=== PATIENT | female | born 1975 | race Caucasian/White ===

== ENCOUNTER 2017-06-01 14:59 | Emergency (ER) | payer SELFPAY ==
[2017-06-01 15:09] VITALS: BP 132/97; BMI 33.3
--- NOTE | 2017-06-01 15:33 | DR.GENAD ---
HPI - PCP Primary Care Physician: NONE - Complaint/Symptoms Chief Complaint:: "LEFT UNDER BREAST PAIN AFTER EATING AND SICK ON MY TUMMY FOR TWO WEEKS NOW AND I THINK I HAVE A KINDEY INFECTION" - Source History Provided: Patient - Mode of Arrival Mode of Arrival: Ambulatory - Timing Onset of Chief Complaint: 05/27/17 PMH - PMH Past Medical History: Yes Past Medical History: COPD Past Surgical History: Yes Surgical History: Tonsillectomy Past Surgical History Comment: TUBAL - Family History History of Family Medical Conditions: No - Social History Does patient currently use any type of tobacco product: Yes Have you used tobacco products in the last 12 months: Yes Type of Tobacco Use: Cigarettes How many years tobacco product used: 20 Does any household member use tobacco: No Alcohol Use: None Do you use any recreational Drugs:: No Lives With: Alone Lives Where: Home - infectious screening In the last 2 months have you had wt loss of >10#?: NO Have you had fever, night sweats or hemotysis?: No Have you traveled outside the country in the last 6 months?: No Isolation: Standard ROS - Review of Systems Constitutional: No Symptoms Reported Eyes: No Symptoms Reported ENTM: No Symptoms Reported Respiratoy: No Symptoms Reported Cardiovascular: No Symptoms Reported Gastrointestinal/Abdominal: No Symptoms Reported Genitourinary: No Symptoms Reported Neurological: No Symptoms Reported Musculoskeletal: No Symptoms Reported Integumentary: No Symptoms Reported Hematologic/Lymphatic: No Symptoms Reported Endocrine: No Symptoms Reported Psychiatric: No Symptoms Reported All Other Systems: Reviewed and Negative PE - Vital Signs Vitals: Temperature 98 F Pulse Rate 110 Respiratory Rate 18 Blood Pressure 132/97 O2 Sat by Pulse Oximetry 100 - General Limitations: No Limitations General Appearance: Alert, In No Apparent Distress - Head Head Exam: Normal Inspection, Atraumatic - Eyes Eye exam: Normal Appearance, PERRL, EOMI - ENT ENT Exam: Normal Exam, Normal Oropharynx External Ear Exam: Normal External Inspection TM/Canal Exam: Bilateral Normal Nose Exam: Normal Nose Exam, Sinus Tenderness Mouth Exam: Normal Inspection Throat Exam: Normal Inspection - Neck Neck Exam: Normal Inspection - Chest Chest Inspection: Normal Inspection, Symmetric Chest Wall Rise - Cardiovascular Cardiovascular Exam: Regular Rate, Normal Rhythm - Abdominal Exam Abdominal Exam: Normal Inspection, Normal Bowel Sounds, Soft. negative: Distention Abdominal Tenderness: negative: RUQ, RLQ, LUQ, LLQ, Epigastrium, Suprapubic, Diffuse, Mild, Moderate, Severe, Other - Extremities Extremities Exam: Normal Inspection - Back Back Exam: Normal Inspection Course - Reevaluation 1st: Improved ROR - Labs Reviewed Laboratory Results Reviewed?: Yes (Urine negative) Result Diagrams: 06/01/17 16:00 06/01/17 16:00 Laboratory: WBC 6.4 X10^3/uL (3.6-10.0) 06/01/17 16:00 RBC 4.21 X10^6/uL (3.5-5.4) 06/01/17 16:00 Hgb 12.4 g/dL (12.0-16.0) 06/01/17 16:00 Hct 36.0 % (36.0-47.0) 06/01/17 16:00 MCV 85.4 fL (80.0-100.0) 06/01/17 16:00 MCH 29.5 pg (27.0-34.0) 06/01/17 16:00 MCHC 34.5 g/dL (33.0-35.0) 06/01/17 16:00 RDW 14.3 % (11.6-16.5) 06/01/17 16:00 Plt Count 283 X10^3/uL (150.0-450.0) 06/01/17 16:00 MPV 8.4 fL (7.4-11.0) 06/01/17 16:00 Neut % 44.5 % (42.0-75.0) 06/01/17 16:00 Lymph % 44.1 % (21.0-51.0) 06/01/17 16:00 [place] % 8.6 % (0.0-13.0) 06/01/17 16:00 Eos % 2.3 % (0.9-2.9) 06/01/17 16:00 Baso % 0.5 % (0.2-1.0) 06/01/17 16:00 Neut # 2.9 x10^3/uL (2.2-4.8) 06/01/17 16:00 Lymph # 2.8 X10^3/uL (1.3-2.9) 06/01/17 16:00 [place] # 0.5 x10^3/uL (0.3-0.8) 06/01/17 16:00 Eos # 0.1 x10^3/uL (0.0-0.2) 06/01/17 16:00 Baso # 0.0 X10^3/uL (0.0-0.1) 06/01/17 16:00 Absolute Nucleated RBC 0.0 /100WBC 06/01/17 16:00 Sodium 143 mmol/L (136-145) 06/01/17 16:00 Corrected Sodium TNP 06/01/17 16:00 Potassium 3.5 mmol/L (3.5-5.1) 06/01/17 16:00 Chloride 107 mmol/L (98-107) 06/01/17 16:00 Carbon Dioxide 31.9 mmol/L (21-32) 06/01/17 16:00 BUN 9 mg/dL (7-18) 06/01/17 16:00 Creatinine 0.65 mg/dL (0.55-1.02) 06/01/17 16:00 Est GFR (MDRD) Af Amer > 60 (>60) 06/01/17 16:00 Est GFR (MDRD) Non-Af > 60 (>60) 06/01/17 16:00 Glucose 83 mg/dL (65-99) 06/01/17 16:00 Calcium 8.0 mg/dL (8.5-10.1) L 06/01/17 16:00 Corrected Calcium 8.7 mg/dL (8.5-10.1) 06/01/17 16:00 Total Bilirubin 0.20 mg/dL (0.2-1.0) 06/01/17 16:00 AST 44 Units/L (15-37) H 06/01/17 16:00 ALT 35 Units/L (12-78) 06/01/17 16:00 Alkaline Phosphatase 92 Units/L (46-116) 06/01/17 16:00 C-Reactive Protein 14.80 mg/L (0-3.0) H 06/01/17 16:00 Total Protein 6.8 g/dL (6.4-8.2) 06/01/17 16:00 Albumin 3.1 g/dL (3.4-5.0) L 06/01/17 16:00 Globulin 3.7 g/dL (2.5-4.5) 06/01/17 16:00 Albumin/Globulin Ratio 0.8 Ratio (1.1-2.1) L 06/01/17 16:00 Specimen Type Clean catch urine 06/01/17 16:00 Urine Color Yellow (YELLOW) 06/01/17 16:00 Urine Appearance Clear (CLEAR) 06/01/17 16:00 Urine pH 7.0 (5.0 - 8.0) 06/01/17 16:00 Ur Specific [place] 1.010 (1.000-1.030) 06/01/17 16:00 Urine Protein Negative (NEGATIVE) 06/01/17 16:00 Urine Glucose (UA) Negative (NEGATIVE) 06/01/17 16:00 Urine Ketones Negative (NEGATIVE) 06/01/17 16:00 Urine Occult Blood 4+ (NEGATIVE) 06/01/17 16:00 Urine Nitrite Negative (NEGATIVE) 06/01/17 16:00 Urine Bilirubin Negative (NEGATIVE) 06/01/17 16:00 Urine Urobilinogen Normal (NORMAL) 06/01/17 16:00 Ur Leukocyte Esterase Negative (NEGATIVE) 06/01/17 16:00 Urine RBC 5 - 7 /HPF (NEGATIVE) 06/01/17 16:00 Urine WBC Rare /HPF (NEGATIVE) 06/01/17 16:00 Ur Squamous Epith Cells Few /HPF (NEGATIVE) 06/01/17 16:00 Urine Bacteria Negative /HPF (NEGATIVE) 06/01/17 16:00 Ur Culture Indicated? No/not indicated 06/01/17 16:00 H. pylori IgG Antibody Negative (NEGATIVE) 06/01/17 16:00 - XRAY XRAY Interpreted by: Radiologist (Chest: wnl, ) - Diagnosis Discharge Problem: Left sided abdominal pain - Discharge Plan Condition: Stable - Follow ups/Referrals Follow ups/Referrals: NFD,None [Primary Care Provider] - 3 days - Instructions
[2017-06-01] MEDS ORDERED: TORADOL 60 MG VIAL IM ONE (15:55)
[2017-06-01] MEDS ORDERED: NS 1000 ML 1,000 ML IV ONE (15:57)
[2017-06-01] MEDS ORDERED: NS 1000 ML 1,000 ML ONE (15:58)
[2017-06-01] MEDS ORDERED: TORADOL 60 MG VIAL ONE (15:58)
[2017-06-01 16:24] LABS: BASOPHILS % (AUTO) 0.5 % (0.2-1.0); BILIRUBIN,URINE NEGATIVE (NEGATIVE); BLOOD/HEMOGLOBIN,URINE 4+ (NEGATIVE); EOSINOPHILS # (AUTO) 0.1 x10^3/uL (0.0-0.2); EOSINOPHILS % (AUTO) 2.3 % (0.9-2.9); GLUCOSE, URINE NEGATIVE (NEGATIVE); HEMOGLOBIN 12.4 g/dL (12.0-16.0); KETONES,URINE NEGATIVE (NEGATIVE); LEUKOCYTE ESTERASE ,URINE NEGATIVE (NEGATIVE); LYMPHOCYTES # (AUTO) 2.8 X10^3/uL (1.3-2.9); LYMPHOCYTES % (AUTO) 44.1 % (21.0-51.0); MEAN CORPUSCULAR HEMOGLOBIN 29.5 pg (27.0-34.0); MEAN CORPUSCULAR HGB CONC 34.5 g/dL (33.0-35.0); MEAN CORPUSCULAR VOLUME 85.4 fL (80.0-100.0); MEAN PLATELET VOLUME 8.4 fL (7.4-11.0); MONOCYTES # (AUTO) 0.5 x10^3/uL (0.3-0.8); MONOCYTES % (AUTO) 8.6 % (0.0-13.0); NEUTROPHILS # (AUTO) 2.9 x10^3/uL (2.2-4.8); NEUTROPHILS % (AUTO) 44.5 % (42.0-75.0); NITRITES,URINE NEGATIVE (NEGATIVE); PLATELET COUNT 283 X10^3/uL (150.0-450.0); PROTEIN,URINE NEGATIVE (NEGATIVE); RED BLOOD COUNT 4.21 X10^6/uL (3.5-5.4); RED CELL DISTRIBUTION WIDTH 14.3 % (11.6-16.5); UROBILINOGEN,URINE NORMAL (NORMAL); WHITE BLOOD COUNT 6.4 X10^3/uL (3.6-10.0)
[2017-06-01 16:31] LABS: ALANINE AMINOTRANSFERASE 35 Units/L (12-78); ALBUMIN 3.1 g/dL (3.4-5.0); ALKALINE PHOSPHATASE 92 Units/L (46-116); ASPARTATE AMINO TRANSFERASE 44 Units/L (15-37); BLOOD UREA NITROGEN 9 mg/dL (7-18); CARBON DIOXIDE 31.9 mmol/L (21-32); CHLORIDE 107 mmol/L (98-107); COR CA(FOR HYPOALB) 8.7 mg/dL (8.5-10.1); CREATININE 0.65 mg/dL (0.55-1.02); GLUCOSE 83 mg/dL (65-99); SODIUM 143 mmol/L (136-145); TOTAL PROTEIN 6.8 g/dL (6.4-8.2); eGFR BLACK RACES > 60 (>60); eGFR NON BLACK RACES > 60 (>60)
[2017-06-01 16:34] LABS: APPEARANCE,URINE CLEAR (CLEAR); COLOR,URINE YELLOW (YELLOW)
[2017-06-01 16:35] LABS: BACTERIA,URINE NEGATIVE /HPF (NEGATIVE); SQUAMOUS EPITHELIAL CELL,UR FEW /HPF (NEGATIVE)
--- NOTE | 2017-06-01 16:45 | RAD ---
HISTORY: Pain Study: PA and lateral Comparison: None Findings: The heart is normal. The pulmonary vessels are normal. The lung apices and thin cut off on the PA vi ew. No consolidation or effusion is seen and the bones are intact. IMPRESSION: Nonvisualization of the apices on the PA view due to the positioning otherwise, unremarkable. Recomm end a followup PA chest for further evaluation. Reported By:
== END 2017-06-01 17:56 | disposition home or self-care (01) ==
LOC: ER 15:16
DX: R10.84 Generalized abdominal pain (principal)
CPT/HCPCS: 36415; 71020; 80053; 81001; 85025; 86140; 86677; 96365; 96372; 96374; 99283; A4222; J1885

== ENCOUNTER 2017-07-10 13:25 | Emergency (ER) | payer SELFPAY ==
[2017-07-10 13:39] VITALS: BP 131/79; BMI 32.5
[2017-07-10] MEDS ORDERED: DEMEROL INJ IM ONE (15:40)
[2017-07-10] MEDS ORDERED: PHENERGAN INJ 25 MG IM ONE (15:41)
--- NOTE | 2017-07-10 15:46 | DR.GENAD ---
HPI - PCP Primary Care Physician: NFD - HPI Comment HPI Comment: WORSE TONIGHT. NAUSEA AND VOMITING PRESENT. - Complaint/Symptoms Chief Complaint Doctors Comments: HEADCHE. HISTORY MIGRAINE HEADACHE. Chief Complaint:: "I have a terrible headache that is radiating to my shoulder. I have even had some nausea with it. I have been having them really frequent. I think it may be due to all of the stress that I am under right now." - Nurses notes reviewed Nurses Notes Review: Yes - Source History Provided: Patient - Mode of Arrival Mode of Arrival: Ambulatory - Timing Onset of Chief Complaint: 07/10/17 Came on: Suddenly - Duration Duration: Constant Duration: Days - Severity Severity: Moderate PMH - PMH Past Medical History: Yes Past Medical History: COPD, Headaches Past Surgical History: No Surgical History: Tonsillectomy - Family History History of Family Medical Conditions: Yes Family Medical History: Hypertension - Social History Does patient currently use any type of tobacco product: Yes Have you used tobacco products in the last 12 months: Yes Type of Tobacco Use: Cigarettes Does any household member use tobacco: Yes Alcohol Use: None Do you use any recreational Drugs:: No Lives With: Friend Lives Where: Home - infectious screening In the last 2 months have you had wt loss of >10#?: NO Have you had fever, night sweats or hemotysis?: No Have you traveled outside the country in the last 6 months?: No Isolation: Standard ROS - Review of Systems Constitutional: No Symptoms Reported Eyes: No Symptoms Reported ENTM: No Symptoms Reported Respiratoy: No Symptoms Reported Cardiovascular: No Symptoms Reported Gastrointestinal/Abdominal: No Symptoms Reported Genitourinary: No Symptoms Reported Neurological: No Symptoms Reported Musculoskeletal: No Symptoms Reported Integumentary: No Symptoms Reported Hematologic/Lymphatic: No Symptoms Reported Endocrine: No Symptoms Reported All Other Systems: Reviewed and Negative PE - Vital Signs Vitals: Temperature 99.7 F Pulse Rate 128 Respiratory Rate 18 Blood Pressure 131/79 O2 Sat by Pulse Oximetry 95 - General Limitations: No Limitations General Appearance: Alert, In No Apparent Distress, Anxious - Head Head Exam: Normal Inspection - Eyes Eye exam: PERRL, EOMI. negative: Scleral Icterus, Conjunctival Injection, Periorbital Swelling, Periorbital Tenderness - ENT ENT Exam: Normal Oropharynx, Normal External Ear Exam, TM's Normal Bilaterally External Ear Exam: Normal External Inspection TM/Canal Exam: Bilateral Normal Nose Exam: Normal Nose Exam Mouth Exam: Normal Inspection Throat Exam: Normal Inspection - Neck Neck Exam: Normal Inspection, Trachea Midline - Chest Chest Inspection: Symmetric Chest Wall Rise - Respiratory Respiratory Exam: Normal Lung Sounds Bilat Respiratory Exam: Bilateral Clear to Auscultation - Cardiovascular Cardiovascular Exam: Regular Rate, Normal Rhythm, Normal Heart Sounds - Abdominal Exam Abdominal Exam: Normal Bowel Sounds, Soft. negative: Tenderness - Extremities Extremities Exam: Normal Inspection - Back Back Exam: Normal Inspection - Neurologic Neurological Exam: Alert, Oriented X3, CN II-XII Intact, Normal Gait, Reflexes Normal. negative: Motor Sensory Deficit - Psychiatric Psychiatric Exam: Anxious - Skin Skin Exam: Normal Color MDM - Differential Diagnosis Differential Diagnosis: MIGRAINE HGEADACHE Course - Treatment Treatment: IM PAIN AND NAUSEA MED IN ED. IMPROVED. - Education/Counseling Education/Counseling: Patient, Education Educated On: Treatment, Diagnosis, Needs for Follow Up - Diagnosis Discharge Problem: Migraine Qualifiers: Migraine type: with aura Status migrainosus presence: without status migrainosus Intractability: intractable Qualified Code(s): G43.119 - Migraine with aura, intractable, without status migrainosus - Discharge Plan Disposition: HOME, SELF-CARE Condition: Stable Prescriptions: [id number] [Fioricet Tab] 1 tab PO Q8H PRN #20 tab PRN Reason: Migraine Headache Promethazine HCl [PHENERGAN TAB 25 MG *] 25 mg PO Q8H PRN #12 tab PRN Reason: Nausea/Vomiting - Follow ups/Referrals Follow ups/Referrals: NFD,None [Primary Care Provider] - 3 days - Instructions Instructions: Migraine Headache, [id number] Additional Instructions: RETURN TO ED IF WORSE.
[2017-07-10] MEDS ORDERED: PHENERGAN INJ 25 MG ONE (15:50)
[2017-07-10] MEDS ORDERED: DEMEROL INJ ONE (15:50)
== END 2017-07-10 16:21 | disposition home or self-care (01) ==
LOC: ER 13:36
DX: G43.119 Migraine with aura, intractable, without status migrainosus (principal)
CPT/HCPCS: 96372; 99282; J2175; J2550